=== PATIENT | female | born 1985 | race Caucasian/White ===

== ENCOUNTER 2018-08-14 17:49 | Emergency (ER) | payer MEDICARE, OTHER ==
[~2018-08-14] VITALS: Ht 170.2 cm; Wt 81.6 kg
[2018-08-14 18:29] VITALS: BP 150/74
[2018-08-14] MEDS ORDERED: IBUPROFEN 400 MG TABLET. PO ONE (19:15)
[2018-08-14] MEDS ORDERED: HYDROcodone/APAP 5/325MG 1 TAB TABLET PO ONE (19:15)
[2018-08-14] MEDS ORDERED: HYDR-2758 PO (19:46)
--- NOTE | 2018-08-14 19:47 | PHYS DOC ---
Past Medical History Past Medical History: Other Additional Past Medical Histor: LUPUS Past Surgical History: No Surgical History Alcohol Use: None Drug Use: None Adult General Chief Complaint Chief Complaint: DENTAL PROBLEM HPI HPI Patient is a 33 year old female who presents to the emergency department complaining of frontal lower dental pain. She states she was seen at [facility] this morning and had a dental block. She states that the medication has worn off and the pain is worse than ever. Patient states that at the previous hospital patient was only prescribed penicillin and nothing for relief of her pain. She reports increased swelling. She denies any allergies, medical history includes lupus, she states that her last menstrual cycle was last week and denies any concerns of . Reports her pain as a 10 out of 10 on the pain scale. Review of Systems Review of Systems Constitutional: Reports fever HENT: Denies nasal congestion or sore throat, see history of present illness [] GI: Denies nausea or vomiting Integument: Denies rash or skin lesions [] Neurologic: Denies headache, focal weakness or sensory changes [] All other systems were reviewed and found to be within normal limits, except as documented in this note. Current Medications Current Medications Current Medications Medications (Trade) Dose Ordered Sig/Eulalio Start Time Stop Time Status Last Admin Dose Admin Acetaminophen/ Hydrocodone Bitart (Lortab 5/325) 2 tab 1X ONCE 08/14/18 19:15 08/14/18 19:16 DC 08/14/18 19:01 2 TAB Ibuprofen (Motrin) 800 mg 1X ONCE 08/14/18 19:15 08/14/18 19:16 DC 08/14/18 19:02 800 MG Allergies Allergies Allergies Coded Allergies Type Severity Reaction Last Updated Verified No Known Drug Allergies 08/14/18 No Physical Exam Physical Exam Constitutional: Well developed, well nourished, tearful, moderate distress, non- toxic appearance. [] HENT: Normocephalic, atraumatic, bilateral external ears normal, oropharynx moist, diffuse dental decay in the lower front of jaw with many broken teeth swelling noted to the left lower portion of face, nose normal. [] Eyes: PERRLA, conjunctiva normal, no discharge. [] Neck: Normal range of motion, no tenderness, supple, no stridor. [] Skin: Warm, dry, no erythema, no rash. [] Neurologic: Alert and oriented X 3, normal motor function, normal sensory function, no focal deficits noted. [] Psychologic: Affect normal, judgement normal, mood normal. [] Current Patient Data Vital Signs Vital Signs Date Time Temp Pulse Resp B/P (MAP) Pulse Ox O2 Delivery O2 Flow Rate FiO2 08/14/18 19:01 20 97 Room Air 08/14/18 18:29 100.0 109 150/74 (99) 100.0 EKG EKG [] Radiology/Procedures Radiology/Procedures [] Course & Med Decision Making Course & Med Decision Making Pertinent Labs and Imaging studies reviewed. (See chart for details) dx: Dental pain, infected dental caries, fever Patient was given 2 hydrocodone in the 100 mg of ibuprofen in the emergency department for relief of pain and for treatment of the fever. She is instructed to continue taking the penicillin that was prescribed at the previous hospital as prescribed. Prescription written for hydrocodone. Patient instructed to take ibuprofen In addition to pain medication that is being prescribed. Follow-up with your dentist this week. Return to the ER symptoms worsen. [] Dragon Disclaimer Dragon Disclaimer This electronic medical record was generated, in whole or in part, using a voice recognition dictation system. Departure Departure Impression: Primary Impression: Pain, dental Additional Impression: Infected dental caries Disposition: 01 HOME, SELF-CARE Condition: STABLE Referrals: UNKNOWN PCP NAME (PCP) Patient Instructions: Dental Caries, Dental Pain, [id number] Additional Instructions: Fill prescription and use as directed. Take ibuprofen in addition to pain medication was prescribed for relief of pain and fever. Continue taking penicillin prescribed by previous physician. Follow-up with your dentist this week. Return to the ER for symptoms worsen. Scripts Hydrocodone Bit/Acetaminophen (HYDROCODONE-APAP 5-325 ) 1 Each Tablet 1 TAB PO PRN Q6HRS PRN for PAIN for 3 Days, #12 TAB 0 Refills Prov: STEFANIE CARRION APRN 08/14/18 Problem Qualifiers STEFANIE CARRION APRN Aug 14, 2018 19:47
== END 2018-08-14 19:47 | disposition home or self-care (01) ==
LOC: EDBD 17:49 → ER 17:49
DX: K02.9 Dental caries, unspecified (principal)
CPT/HCPCS: 99283